=== PATIENT | male | born 1975 | race Caucasian/White ===

== ENCOUNTER 2018-05-05 22:59 | Emergency (ER) | payer OTHER ==
[~2018-05-05] VITALS: Ht 185.4 cm; Wt 95.4 kg
[2018-05-06] MEDS ORDERED: TETanus/Pertussis (Acell)/Diphther VAC/PF (Tdap-Adult) 0.5ml syringe IMVAC ONE (04:15)
[2018-05-06] MEDS ORDERED: LIDOcaine 1.5% w/epinephrine 1:200,000 5ml ampul IJ ONE ×2 (04:15→04:40)
[2018-05-06] MEDS ORDERED: CEPH500C5 PO (05:35)
[2018-05-06 06:05] VITALS: BP 133/76
== END 2018-05-06 06:07 | disposition home or self-care (01) ==
LOC: ER 23:01
DX: S61.512A Laceration without foreign body of left wrist, initial encounter (principal); S61.012A Laceration without foreign body of left thumb without damage to nail, initial encounter; S60.572A Other superficial bite of hand of left hand, initial encounter; Z79.899 Other long term (current) drug therapy; W54.0XXA Bitten by dog, initial encounter; Y93.89 Activity, other specified; Y92.89 Other specified places as the place of occurrence of the external cause; Y99.8 Other external cause status
CPT/HCPCS: 12004; 73100; 90471; 90715; 99284; A6224; A6446; A6449; J3490; J7030